=== PATIENT | male | born 1945 | race Caucasian/White ===

== ENCOUNTER 2024-08-21 17:12 | Emergency (ER) | payer MEDICARE, OTHER ==
[~2024-08-21] VITALS: Ht 175.3 cm; Wt 80.0 kg
[2024-08-21 17:12] VITALS: PULSE 52; RESP 18; O2SAT 90
[2024-08-21 17:15] VITALS: O2SAT 0
[2024-08-21] MEDS ORDERED: VASOPRESSIN 20 UNIT in SODIUM CHLORIDE 0.9% 99 ML IV STA (17:35)
[2024-08-21] MEDS ORDERED: EPINEPHRINE 5 MG in SODIUM CHLORIDE 0.9% 245 ML IV STA (17:35)
[2024-08-21] MEDS ORDERED: DOBUTAMINE 500MG PREMIX 250 ML IV STA (17:35)
[2024-08-21] MEDS ORDERED: SODIUM CHLORIDE 0.9% 1,000 ML IV ONE (17:45)
[2024-08-21 18:12] VITALS: BP 0/0; PULSE 0; RESP 0; TEMP 35.94732; O2SAT 0
[2024-08-21] MEDS ORDERED: EPINEPHRINE 5 MG in SODIUM CHLORIDE 0.9% 250 ML IV PRN (18:15)
[2024-08-21] MEDS ORDERED: VASOPRESSIN 20 UNIT in SODIUM CHLORIDE 0.9% 99 ML IV PRN (18:15)
[2024-08-21] MEDS ORDERED: DOBUTAMINE 500MG PREMIX 250 ML IV PRN (18:15)
== END 2024-08-21 18:12 ==
LOC: ER 17:12
DX: I46.9 Cardiac arrest, cause unspecified (principal); N18.6 End stage renal disease; Z99.2 Dependence on renal dialysis
CPT/HCPCS: 99291; 92950; 82962; J1250; J3490 ×2; J7050 ×2; J7030; 94003